=== PATIENT | male | born 1980 | race American Indian/Alaskan Native ===

== ENCOUNTER 2017-03-17 11:11 | Emergency (ER) | payer SELFPAY ==
[2017-03-17 11:17] VITALS: BP 142/98
[2017-03-17 12:35] LABS: Basophils % (Auto) 0.4 % (0.0-1.8); Eosinophils % (Auto) 3.4 % (0.0-4.3); Hematocrit 43.1 % (35.5-45.6); Hemoglobin 13.8 gm/dl (11.8-15.2); Mean Corpuscular HGB Conc 32 % (32-34); Mean Corpuscular Hemoglobin 27 pg (28-32); Mean Corpuscular Volume 85 fl (84-94); Platelet Count 164 K/mm3 (140-440); Red Blood Count 5.07 M/mm3 (3.65-5.03); Red Cell Distribution Width 14.6 % (13.2-15.2); White Blood Count 8.3 K/mm3 (4.5-11.0)
[2017-03-17 12:50] LABS: Anion Gap 18 mmol/L; BUN/Creatinine Ratio 12; Blood Urea Nitrogen 13 mg/dL (9-20); Calcium 8.7 mg/dL (8.4-10.2); Carbon Dioxide 24 mmol/L (22-30); Chloride 103.6 mmol/L (98-107); Glucose 82 mg/dL (75-100); Potassium 4.3 mmol/L (3.6-5.0); Sodium 141 mmol/L (137-145)
[2017-03-17] MEDS ORDERED: ROCEPHIN IM STA (14:57)
[2017-03-17] MEDS ORDERED: ATROVENT IH ONE (14:57)
[2017-03-17] MEDS ORDERED: PROVENTIL IH ONE (14:57)
[2017-03-17] MEDS ORDERED: DELTASONE PO ONE (14:57)
[2017-03-17] MEDS ORDERED: XYLOCAINE 1% MPF 5 mL INFILTRATI ONE (14:57)
--- NOTE | 2017-03-17 14:57 | Emergency Department Report ---
HPI - General Chief Complaint: Upper Respiratory Infection Time Seen by Provider: 03/17/17 14:43 - HPI HPI: Patient reports cough for 3-4 month and states that he is using the inhaler. Patient said that he has a history of asthma and high blood pressure. He said he is not on any blood pressure medication. Patient was last seen here for similar problems on 05/02/2015 and was given prescription for albuterol azithromycin and prednisone. He said she started off with nasal congestion and runny nose and progressed to cough and wheezing. He said that he is having some weakness and dizziness that started this morning at work. He said he gets dizzy when he coughs. He also reports that he gets some chest tightness with coughing but denies any cardiac related disease. Denies any fever or chills. Denies any shortness of breath. Denies any sore throat. Patient does not have his own inhaler and was using his girlfriend inhaler. He does not follow-up for his chronic medical problem with a medical provider ED Past Medical Hx - Past Medical History Previous Medical History?: Yes Hx Hypertension: Yes Hx Asthma: Yes - Surgical History Past Surgical History?: No - Family History Family history: no significant - Social History Smoking Status: Current Every Day Smoker Substance Use Type: Alcohol - Medications Home Medications: Home Medications Medication Instructions Recorded Confirmed Last Taken Type ALBUTEROL Inhaler [ProAir HFA 2 puff IH QID PRN #1 inhalation 05/02/15 Unknown Rx Inhaler] predniSONE [Deltasone] 40 mg PO QDAY #8 tab 05/02/15 Unknown Rx Azithromycin [Zithromax] 250 mg PO QDAY #4 tablet 05/06/15 Unknown Rx predniSONE [Deltasone] 50 mg PO QDAY #5 tab 05/06/15 Unknown Rx ALBUTEROL Inhaler [ProAir HFA 2 puff IH QID PRN 30 Days #1 03/17/17 Unknown Rx Inhaler] inhalation Amoxicillin/K Clav Tab [Augmentin 1 tab PO Q12HR 10 Days #20 tab 03/17/17 Unknown Rx 875 mg] Cetirizine HCl [ZyrTEC] 10 mg PO QAM 14 Days #14 capsule 03/17/17 Unknown Rx Fluticasone [Flonase] 1 spray NS QDAY 14 Days #1 bottle 03/17/17 Unknown Rx guaiFENesin/CODEINE [Robitussin AC] 10 ml PO QHS PRN 7 Days #70 03/17/17 Unknown Rx oral.liqd methylPREDNISolone [Medrol] 4 mg PO QAM 6 Days #1 tab.ds.pk 03/17/17 Unknown Rx ED Review of Systems ROS: Stated complaint: DIZZY AND WEAK Other details as noted in HPI Comment: All other systems reviewed and negative Constitutional: no symptoms reported Eyes: denies: eye discharge ENT: throat pain (throat pain with cough and), congestion. denies: ear pain, dental pain Respiratory: cough, wheezing. denies: orthopnea, shortness of breath, SOB with exertion, SOB at rest, stridor Cardiovascular: chest pain (chest pain with coughing). denies: palpitations, dyspnea on exertion, edema, syncope, paroxysmal nocturnal dyspnea Gastrointestinal: denies: abdominal pain, nausea, vomiting, diarrhea, constipation Musculoskeletal: denies: back pain, joint swelling, arthralgia, myalgia Skin: denies: rash Neurological: denies: headache, weakness, abnormal gait, vertigo Physical Exam - Physical Exam Vital Signs: Vital Signs 03/17/17 11:14 Temperature 98.4 F Pulse Rate 87 Respiratory 16 Rate Blood Pressure 142/98 O2 Sat by Pulse 98 Oximetry General: Patient is a 36-year-old male well-nourished well-developed in no acute distress. Physical Exam: Head: Normocephalic, atraumatic, no abrasion, no bruising and no contusion. Eyes: Biateral pupils equal and reactive to light, bilateral EOM intact.. Bilateral conjunctival and sclera without injection, normal accommodation. No nystagmus Mouth:, No pharyngeal erythema or exudate. Uvula is midline and oral airways patent Ears: Bilateral TMs congested without erythema. No EAC redness ,swelling or drainage. Nose: Nasal mucosa congested with erythema and clear drainage. Maxillary and frontal sinuses nontender to palpate. Neck: Supple, No Cervical adenopathy, full range of motion and no C-spine tenderness. Cardiovascular: S1, S2. Regular rate and rhythm. No murmur. Capillary refill is less then 3 seconds. Lungs: Wheezes throughout lung myers .No rhonci or rales. No chest wall tenderness. Dry cough. No use of accessory muscles Abdomen: Non-tender to palpate in all quadrants, no guarding or rebound tenderness, positive bowel sounds in all quadrants. No CVA tenderness. No hernia, bruit or mass. No rigidity or distention. Extremities: No clubbing, cyanosis or edema. +2 pulses. No neurovascular compromise Skin: Clean, dry and intact. No rash or lesions. Psych: Normal mood and behavior ED Course Vital Signs 03/17/17 11:14 Temperature 98.4 F Pulse Rate 87 Respiratory 16 Rate Blood Pressure 142/98 O2 Sat by Pulse 98 Oximetry - Reevaluation(s) Reevaluation #1: 03/17/17 17:16 Patient received albuterol 5 mg and Atrovent 0.5 mg nebulized in emergency room along with Deltasone 60 mg and said he felt better. His lung sounds after treatment clear ED Medical Decision Making - Lab Data Result diagrams: 03/17/17 12:15 03/17/17 12:14 Lab Results 03/17/17 03/17/17 03/17/17 Range/Units 12:14 12:15 Unknown WBC 8.3 (4.5-11.0) K/mm3 RBC 5.07 H (3.65-5.03) M/mm3 Hgb 13.8 (11.8-15.2) gm/dl Hct 43.1 (35.5-45.6) % MCV 85 (84-94) fl MCH 27 L (28-32) pg MCHC 32 (32-34) % RDW 14.6 (13.2-15.2) % Plt Count 164 (140-440) K/mm3 Lymph % (Auto) 35.9 H (13.4-35.0) % Andrew % (Auto) 7.8 H (0.0-7.3) % Eos % (Auto) 3.4 (0.0-4.3) % Baso % (Auto) 0.4 (0.0-1.8) % Lymph # 3.0 (1.2-5.4) K/mm3 Andrew # 0.6 (0.0-0.8) K/mm3 Eos # 0.3 (0.0-0.4) K/mm3 Baso # 0.0 (0.0-0.1) K/mm3 Seg Neutrophils % 52.5 (40.0-70.0) % Seg Neutrophils # 4.4 (1.8-7.7) K/mm3 Sodium 141 (137-145) mmol/L Potassium 4.3 (3.6-5.0) mmol/L Chloride 103.6 (98-107) mmol/L Carbon Dioxide 24 (22-30) mmol/L Anion Gap 18 mmol/L BUN 13 (9-20) mg/dL Creatinine 1.1 (0.8-1.5) mg/dL Estimated GFR > 60 ml/min BUN/Creatinine Ratio 12 % Glucose 82 (75-100) mg/dL Calcium 8.7 (8.4-10.2) mg/dL Troponin T < 0.010 < 0.010 (0.00-0.029) ng/mL - EKG Data -: EKG Interpreted by Me EKG shows normal: sinus rhythm (83 bpm) Rate: normal - EKG Data Interpretation: no acute changes - Radiology Data Radiology results: report reviewed Chest x-ray revealed no acute cardiopulmonary findings - Medical Decision Making ED course: Patient here report coughing for 3-4 month that he has been using another person's albuterol because he ran out of his and cough and wheeze and is getting worse. Patient has a history of asthma and has been seen here in the past and treated with albuterol, steroid and antibiotic. He is also complaining of weakness and dizziness when he coughs. And also chest pain or coughing. Patient had EKG which was normal without any acute findings, he does not have any cardiac disease has history of hypertension and asthma. He is not on any medication for his high blood pressure. Patient with wheezing throughout lung myers without any use of accessory muscles. Patient chest x- ray revealed no acute cardiopulmonary findings. Received albuterol 5 mg and Atrovent 0.5 mg nebulizer and lung sounds were clear after treatment. He also received physical 60 mg by mouth in emergency room. Patient had lab work to include CBC and BMP which are stable and his Troponin level was normal. Xray/ lab work discussed with patient and he voiced understanding I discussed with him diagnosis and treatment plan and he needs to follow up with primary care physician and if he does not have a primary care physician he'll need to follow- up at [facility] to manage his chronic asthma and high blood pressure. Patient discharged home with prescription for Augmentin, Zyrtec, Flonase and guaifenesin with codeine for cough and to take at night. Critical care attestation.: If time is entered above; I have spent that time in minutes in the direct care of this critically ill patient, excluding procedure time. ED Disposition Clinical Impression: Cough with congestion of paranasal sinus, Atypical chest pain, Vestibular dizziness involving both inner ears Asthma attack Qualifiers: Asthma severity: mild Asthma persistence: intermittent Qualified Code(s): J45.21 - Mild intermittent asthma with (acute) exacerbation Disposition: - TO HOME OR SELFCARE Is pt being admited?: No Does the pt Need Aspirin: No Condition: Stable Instructions: Chest Pain (ED), Asthma (ED), Acute Cough (ED) Additional Instructions: dizziness is caused by fluid behind your eardrums and this why he will need to take Zyrtec to help to relieve congestion. Please inrease her fluid intake Make an appointment to follow up with your primary care physician in 2 days and if he do not have one you can follow-up at [facility] Take medication as prescribed Please do not drive or operate heavy machinery while taking guaifenesin with codeine as this medication causes drowsiness Take antibiotic with yogurt or probiotic to prevent diarrhea Flush nostrils out with nasal saline wash and this will help to relieve nasal congestion Prescriptions: guaiFENesin/CODEINE [Robitussin AC] 10 ml PO QHS PRN 7 Days #70 oral.liqd PRN Reason: Cough ALBUTEROL Inhaler [ProAir HFA Inhaler] 2 puff IH QID PRN 30 Days #1 inhalation PRN Reason: Wheezing Amoxicillin/K Clav Tab [Augmentin 875 mg] 1 tab PO Q12HR 10 Days #20 tab Cetirizine HCl [ZyrTEC] 10 mg PO QAM 14 Days #14 capsule Fluticasone [Flonase] 1 spray NS QDAY 14 Days #1 bottle methylPREDNISolone [Medrol] 4 mg PO QAM 6 Days #1 tab.ds.pk Referrals: PRIMARY CARE, [Primary Care Provider] - 03/19/17 [facility] [place] [Outside] - 03/19/17 Forms: Work/School Release Form(ED)
--- NOTE | 2017-03-17 15:48 | XRay Report ---
ROUTINE CHEST, TWO VIEWS: HISTORY: Cough. The trachea, heart, mediastinal contour, lung myers and bony thorax are unremarkable. IMPRESSION: Unremarkable chest x-ray.
== END 2017-03-17 18:02 | disposition home or self-care (01) ==
LOC: ED 11:11
DX: J45.909 Unspecified asthma, uncomplicated (principal); I10 Essential (primary) hypertension; F17.200 Nicotine dependence, unspecified, uncomplicated
CPT/HCPCS: 36415; 71020; 80048; 84484; 85025; 93005; 93010; 96372; 99284; J0696; J7512

== ENCOUNTER 2017-06-21 18:35 | Emergency (ER) | payer SELFPAY ==
--- NOTE | 2017-06-21 20:18 | XRay Report ---
FINAL REPORT PROCEDURE: XR SPINE SACRUM/COCCYX 2+V TECHNIQUE: Three views sacrum HISTORY: severe pain in sacrum/coccyx area s/p heavy liftin COMPARISON: No prior studies are available for comparison. FINDINGS: Mild sacroiliitis. Sacral ala appears to be grossly intact. Indeterminate to exclude slight fracture of the very distal coccyx tip as well as at the posterior coccygeal interface or transition and at the 2nd coccygeal segment. Consider followup CT scan to further evaluate. IMPRESSION: Recommend CT pelvis to exclude fracture at the sacrococcygeal junction, S2 segment, and very tip of the coccyx.
[2017-06-22] MEDS ORDERED: MOTRIN ONE (00:10)
[2017-06-22] MEDS ORDERED: FLEXERIL ONE (00:10)
[2017-06-22] MEDS ORDERED: FLEXERIL PO ONE (00:11)
[2017-06-22] MEDS ORDERED: MOTRIN PO ONE (00:11)
--- NOTE | 2017-06-22 01:22 | Emergency Department Report ---
HPI - General Chief Complaint: Back Pain/Injury Time Seen by Provider: 06/22/17 01:01 - HPI HPI: Patient is a 36-year-old male who presents to ED complaining of intermittent chronic back pain for the past week. Patient states yesterday his tailbone area began to hurt. Patient states that he didn't associate any trauma, injuries to the back. 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 He doesn't have a heavy lifting and thinks this caused his back pain. Patient denies any allergies to any medications. He denies chest pain, shortness of breath, chest nausea vomiting or abdominal pain, dysuria ED Past Medical Hx - Past Medical History Hx Hypertension: Yes Hx Asthma: Yes - Surgical History Past Surgical History?: No - Social History Smoking Status: Never Smoker Substance Use Type: Alcohol - Medications Home Medications: Home Medications Medication Instructions Recorded Confirmed Last Taken Type ALBUTEROL Inhaler [ProAir HFA 2 puff IH QID PRN #1 inhalation 05/02/15 Unknown Rx Inhaler] predniSONE [Deltasone] 40 mg PO QDAY #8 tab 05/02/15 Unknown Rx Azithromycin [Zithromax] 250 mg PO QDAY #4 tablet 05/06/15 Unknown Rx predniSONE [Deltasone] 50 mg PO QDAY #5 tab 05/06/15 Unknown Rx ALBUTEROL Inhaler [ProAir HFA 2 puff IH QID PRN 30 Days #1 03/17/17 Unknown Rx Inhaler] inhalation Amoxicillin/K Clav Tab [Augmentin 1 tab PO Q12HR 10 Days #20 tab 03/17/17 Unknown Rx 875 mg] Cetirizine HCl [ZyrTEC] 10 mg PO QAM 14 Days #14 capsule 03/17/17 Unknown Rx Fluticasone [Flonase] 1 spray NS QDAY 14 Days #1 bottle 03/17/17 Unknown Rx guaiFENesin/CODEINE [Robitussin AC] 10 ml PO QHS PRN 7 Days #70 03/17/17 Unknown Rx oral.liqd methylPREDNISolone [Medrol] 4 mg PO QAM 6 Days #1 tab.ds.pk 03/17/[address] (Nf) 50 mg PO BID #30 tablet.dr 06/22/17 Unknown Rx traMADol [Ultram] 50 mg PO Q6HR PRN #20 tablet 06/22/17 Unknown Rx ED Review of Systems ROS: Stated complaint: LOWER BACK PAIN Other details as noted in HPI Constitutional: denies: chills, fever Eyes: denies: eye pain, eye discharge, vision change ENT: denies: ear pain, throat pain Respiratory: denies: cough, shortness of breath, wheezing Cardiovascular: denies: chest pain, palpitations Endocrine: no symptoms reported Gastrointestinal: denies: abdominal pain, nausea, diarrhea Genitourinary: denies: urgency, dysuria Musculoskeletal: denies: back pain, joint swelling, arthralgia Skin: denies: rash, lesions Neurological: denies: headache, weakness, paresthesias Psychiatric: denies: anxiety, depression Hematological/Lymphatic: denies: easy bleeding, easy bruising Physical Exam - Physical Exam Vital Signs: Vital Signs 06/21/17 18:41 Temperature 97.5 F L Pulse Rate 88 Respiratory 18 Rate Blood Pressure 173/107 O2 Sat by Pulse 99 Oximetry Physical Exam: GENERAL: Alert and oriented x3, no apparent distress, Normal Gait, atraumatic. NECK: Supple. Non edematous, No lymphadenopathy or thyromegaly. No C-spine tenderness LUNGS: Symetrical with respiration, No wheezing, no rales or crackles, CTAB. HEART: S1, S2 present, regular rate and rhythm without murmur, no rubs, no gallops. Non tender to palpation ABDOMEN: No organomegaly was noted,Positive bowel sounds, soft, and non- distended. . Nontender to palpation on all Quadrants, NO CVA tenderness. BACK: Full range of motion, no spinal tenderness, nontender to palpation. Tenderness to palpation of the right latissimus dorsi muscles. Moderate tenderness to palpation of the lower coccygeal region, no masses palpated no lesions NEUROLOGIC: The patient is cooperative with no focal neurologic deficits. . Normal speech. Normal sensation in bilateral upper and lower extremities, No loss of sensation, ED Course Vital Signs 06/21/17 18:41 Temperature 97.5 F L Pulse Rate 88 Respiratory 18 Rate Blood Pressure 173/107 O2 Sat by Pulse 99 Oximetry ED Medical Decision Making - Lab Data Vital Signs 06/21/17 06/22/17 18:41 01:41 Temperature 97.5 F L 98.4 F Pulse Rate 88 78 Respiratory 18 16 Rate Blood Pressure 173/107 Blood Pressure 136/86 [Right] O2 Sat by Pulse 99 100 Oximetry - Radiology Data Radiology results: report reviewed, image reviewed FINAL REPORT PROCEDURE: XR SPINE SACRUM/COCCYX 2+V TECHNIQUE: Three views sacrum HISTORY: severe pain in sacrum/coccyx area s/p heavy liftin COMPARISON: No prior studies are available for comparison. FINDINGS: Mild sacroiliitis. Sacral ala appears to be grossly intact. Indeterminate to exclude slight fracture of the very distal coccyx tip as well as at the posterior coccygeal interface or transition and at the 2nd coccygeal segment. Consider followup CT scan to further evaluate. IMPRESSION: Recommend CT pelvis to exclude fracture at the sacrococcygeal junction, S2 segment, and very tip of the coccyx. Transcribed By: WEP Dictated By: DOMINIQUE BRYANT MD Electronically Authenticated By: DOMINIQUE BRYANT MD Signed Date/Time: 06/21/172013 - Medical Decision Making 36-year-old male presents to ED with low back pain ED course: Patient received Motrin and Flexeril in ED. Vital signs are normal patient is in no acute distress X-ray shows no acute fracture or dislocation. Possible concern of the coccyx, Patient did not sustain any trauma or any injuries fracture is less likely. Discussed with patient follow-up with orthopedics as referred Even if there was a coccyx fracture, plan of care would not change. he was to follow-up with orthopedic I discussed this with the patient patient states understanding Discussed with patient follow-up with primary care physician. Discussed the patient and take medications as prescribed. Patient has no neurological deficit. Patient is alert and oriented 3 and understands all instructions given. Discussed drowsiness effect of Flexeril makes her drowsy and not to operate machinery while taking flexeril Critical care attestation.: If time is entered above; I have spent that time in minutes in the direct care of this critically ill patient, excluding procedure time. ED Disposition Clinical Impression: Myalgia Low back pain Qualifiers: Chronicity: chronic Back pain laterality: left Sciatica presence: without sciatica Qualified Code(s): M54.5 - Low back pain; G89.29 - Other chronic pain Disposition: DC-01 TO HOME OR SELFCARE Is pt being admited?: No Does the pt Need Aspirin: No Condition: Stable Instructions: Musculoskeletal Pain (ED), Trigger Point Pain (ED), Back Pain (ED ), Arthralgia (ED) Additional Instructions: Make sure to follow up with the primary care physician as discussed. Follow-up with her orthopedic doctor as referred Take all your medications as you've been prescribed. You have been given a copy of their x-ray report today If you have any worsening symptoms or develop new symptoms please return to ED immediately. Prescriptions: Diclofenac Dr (Nf) 50 mg PO BID #30 tablet. traMADol [Ultram] 50 mg PO Q6HR PRN #20 tablet PRN Reason: Pain Referrals: PRIMARY CARE, [Primary Care Provider] - 3-5 Days RICKY ROBERTO MD [Staff Physician] - 3-5 Days [facility] [Outside] - 3-5 Days [facility] [Outside] - 3-5 Days Forms: Accompanied Note, Work/School Release Form Time of Disposition: 01:25
[2017-06-22 01:41] VITALS: BP 136/86
== END 2017-06-22 01:42 | disposition home or self-care (01) ==
LOC: ED 18:35
DX: M54.5 Low back pain (principal); M79.1 Myalgia; I10 Essential (primary) hypertension; J45.909 Unspecified asthma, uncomplicated
CPT/HCPCS: 72220; 99283

== ENCOUNTER 2018-11-23 18:08 | Emergency (ER) | payer SELFPAY ==
[2018-11-23] MEDS ORDERED: DUONEB *Not for PRN Use IH ONE (18:17)
[2018-11-23 18:18] VITALS: BP 140/95
--- NOTE | 2018-11-23 18:18 | Event Note ---
ED Screening Note Date of service: 11/23/18 Time: 18:15 ED Screening Note: This is a 38 y.o. M. that presents with a cough and SOB. Ran out of inhaler. PMH Asthma Current smoker This initial assessment/diagnostic orders/clinical plan/treatment(s) is/are subject to change based on patients health status, clinical progression and re- assessment by fellow clinical providers in the ED. Further treatment and workup at subsequent clinical providers discretion. Patient/guardian urged not to elope from the ED as their condition may be serious if not clinically assessed and managed. Initial orders include: CXR Duoneb treatment
[2018-11-23] MEDS ORDERED: DECADRON IM ONE (19:02)
--- NOTE | 2018-11-23 19:28 | XRay Report ---
CHEST 2 VIEWS INDICATION: cough and SOB. COMPARISON: 03/17/2017. FINDINGS: Support devices: None. Heart: Within normal limits. Lungs/Pleura: No acute air space or interstitial disease. No significant pleural effusion. IMPRESSION: No acute findings. Signer Name: Rolando Parker MD Signed: 11/23/2018 7:24 PM Workstation Name: [id number] - Social Platform
[2018-11-23] MEDS ORDERED: TYLENOL/CODEINE PO ONE (19:35)
--- NOTE | 2018-11-23 19:38 | Emergency Department Report ---
Minor Respiratory - HPI Chief Complaint: Upper Respiratory Infection Stated Complaint: ASTHMA Time Seen by Provider: 11/23/18 18:15 Duration: 2 Days Severity: moderate Minor Respiratory: Yes Able to Tolerate Fluids, Yes Cough, No Rhinorrhea, No Sore Throat, No Ear Pain, No Sick Contacts, No Hemoptysis, No Chest Pain, No Shortness of Breath, No Fever Other History: This is a 38-year-old male with a history of chronic bronchitis presents to ED complaining of intermittent cough for the past 2-3 days. Patient states that he's been using his children's inhalers to no relief. Patient states cough is intermittent tach throughout the day is getting worse. Patient denies fever/chills/nausea vomiting this chest pain or shortness of breath. Patient states that he is a cigarette smoker. Patient denies a history of asthma ED Review of Systems ROS: Stated complaint: ASTHMA Other details as noted in HPI Comment: All other systems reviewed and negative ED Past Medical Hx - Past Medical History Previous Medical History?: Yes Hx Hypertension: Yes Hx Asthma: Yes - Surgical History Past Surgical History?: No - Social History Smoking Status: Current Every Day Smoker Substance Use Type: None - Medications Home Medications: Home Medications Medication Instructions Recorded Confirmed Last Taken Type ALBUTEROL Inhaler (OR & NICU) 2 puff IH QID PRN #1 inhalation 05/02/15 Unknown Rx [ProAir HFA Inhaler] predniSONE [Deltasone] 40 mg PO QDAY #8 tab 05/02/15 Unknown Rx Azithromycin [Zithromax] 250 mg PO QDAY #4 tablet 05/06/15 Unknown Rx predniSONE [Deltasone] 50 mg PO QDAY #5 tab 05/06/15 Unknown Rx Amoxicillin/K Clav Tab [Augmentin 1 tab PO Q12HR 10 Days #20 tab 03/17/17 Unknown Rx 875 mg] Cetirizine HCl [ZyrTEC] 10 mg PO QAM 14 Days #14 capsule 03/17/17 Unknown Rx Fluticasone [Flonase] 1 spray NS QDAY 14 Days #1 bottle 03/17/[address] (Nf) 50 mg PO BID #30 tablet.dr 06/22/17 Unknown Rx traMADol [Ultram] 50 mg PO Q6HR PRN #20 tablet 06/22/17 Unknown Rx ALBUTEROL Inhaler (OR & NICU) 2 puff IH QID PRN 30 Days #1 11/23/18 Unknown Rx [ProAir HFA Inhaler] inhalation guaiFENesin/CODEINE [Robitussin AC] 10 ml PO QHS PRN 7 Days #70 11/23/18 Unknown Rx oral.liqd methylPREDNISolone [Medrol 4MG 4 mg PO QAM 6 Days #1 tab.ds.pk 11/23/18 Unknown Rx DOSEPAK (21 tabs)] Minor Respiratory Exam - Exam General: Vital signs noted. No distress. Alert and acting appropriately. HEENT: Yes Moist Mucous Membranes, No Pharyngeal Erythema, No Pharyngeal Exudates, No Rhinorrhea, No Conjuctival Injection, No Frontal Tenderness, No Maxillary Tenderness Ear: Neither TM Bulge, Neither TM Erythema, Neither EAC Pain, Neither EAC Discharge Neck: Yes Supple, No Adenopathy Lungs: Yes Good Air Exchange, No Wheezes, No Ronchi, No Stridor, No Cough, No Labored Respirations, No Retractions, No Use of Accessory Muscles, No Other Abnormal Lung Sounds Heart: Yes Regular, No Murmur Abdomen: Yes Normal Bowel Sounds, No Tenderness, No Peritoneal Signs Skin: No Rash, No Edema Neurologic: Alert and oriented, no deficits. Musculoskeletal: Unremarkable. ED Course Vital Signs 11/23/18 18:15 Temperature 98 F Pulse Rate 90 Respiratory 20 Rate Blood Pressure 140/95 O2 Sat by Pulse 98 Oximetry ED Medical Decision Making - Radiology Data Radiology results: report reviewed, image reviewed Fluoro Time In Minutes: CHEST 2 VIEWS INDICATION: cough and SOB. COMPARISON: 03/17/2017. FINDINGS: Support devices: None. Heart: Within normal limits. Lungs/Pleura: No acute air space or interstitial disease. No significant pleural effusion. IMPRESSION: No acute findings. Signer Name: Rolando Parker MD Signed: 11/23/2018 7:24 PM Workstation Name: [id number] Transcribed By: ES Dictated By: Rolando Parker MD Electronically Authenticated By: Rolando Parker MD Signed Date/Time: 11/23/181923 - Medical Decision Making 32-year-old male presents with bronchitis ED course: Patient received a breathing treatment, prednisone, cough suppressant in the ED. Chest x-ray ordered, chest x-ray shows no acute findings. Patient had no respiratory distress in the ED. Post treatment evaluation: No wheezing heard, no use of accessory muscles, Discussed the patient to get a humidifier for his home and use that at home I discussed with the patient to follow up with her primary care physician. I discussed with the patient will be going home on with albuterol inhaler as well as nebulizer Vital signs are normalized, patient is saturation at 99% on room air. I discussed with the patient is symptoms worsen to return to ED immediately. Critical care attestation.: If time is entered above; I have spent that time in minutes in the direct care of this critically ill patient, excluding procedure time. ED Disposition Clinical Impression: Chronic bronchitis Disposition: DC-01 TO HOME OR SELFCARE Is pt being admited?: No Does the pt Need Aspirin: No Condition: Stable Instructions: Chronic Bronchitis (ED) Additional Instructions: Make sure to follow up with the primary care physician as discussed. Take all your medications as you've been prescribed. The need to follow-up with a head chef as referred If you have any worsening symptoms or develop new symptoms please return to ED immediately. Prescriptions: guaiFENesin/CODEINE [Robitussin AC] 10 ml PO QHS PRN 7 Days #70 oral.liqd PRN Reason: Cough methylPREDNISolone [Medrol 4MG DOSEPAK (21 tabs)] 4 mg PO QAM 6 Days #1 tab.ds.pk ALBUTEROL Inhaler (OR & NICU) [ProAir HFA Inhaler] 2 puff IH QID PRN 30 Days #1 inhalation PRN Reason: Wheezing Referrals: [facility] MD SIMON [Primary Care Provider] - 3-5 Days NADEGE VALLADARES MD [Referring] - 3-5 Days [facility] [Provider Group] - 3-5 Days [facility] [Provider Group] - 3-5 Days Forms: Accompanied Note, Work/School Release Form(ED) Time of Disposition: 19:40 (mode)
== END 2018-11-23 20:02 | disposition home or self-care (01) ==
LOC: ED 18:08
DX: J42 Unspecified chronic bronchitis (principal); J45.909 Unspecified asthma, uncomplicated; F17.200 Nicotine dependence, unspecified, uncomplicated; I10 Essential (primary) hypertension; Z79.899 Other long term (current) drug therapy
CPT/HCPCS: 71046; 94640; 96372; 99283; J1100

== ENCOUNTER 2018-12-14 18:44 | Emergency (ER) | payer SELFPAY ==
[2018-12-14] MEDS ORDERED: DUONEB *Not for PRN Use IH ONE (18:57)
[2018-12-14] MEDS ORDERED: PROVENTIL IH ONE (20:00)
[2018-12-14] MEDS ORDERED: NACL 0.9% 1000 ML 1,000 ML IV ONE (20:01)
[2018-12-14] MEDS ORDERED: SOLU-Medrol IV ONE (20:01)
[2018-12-14] MEDS ORDERED: ATROVENT IH ONE (20:01)
[2018-12-14] MEDS ORDERED: TORADOL IVP ONE (20:02)
[2018-12-14] MEDS ORDERED: ROBITUSSIN AC PO ONE (21:02)
--- NOTE | 2018-12-14 21:35 | Emergency Department Report ---
ED General Adult HPI - General Chief complaint: Dyspnea/Respdistress Stated complaint: MARAL Time Seen by Provider: 12/14/18 19:24 Source: patient, family Mode of arrival: Ambulatory Limitations: Other - History of Present Illness Initial comments: Patient presents to the emergency department with a chief complaint of a cough with bronchitis for last 2-3 weeks. Patient states the albuterol at home was not working. Patient complains of having chest burning with cough only. Patient denies abdominal pain, headache. -: week(s) Severity scale (0 -10): 4 Consistency: constant Improves with: none Worsens with: none Associated Symptoms: denies other symptoms Treatments Prior to Arrival: none - Related Data Previous Rx's Medication Instructions Recorded Last Taken Type ALBUTEROL Inhaler (OR & NICU) 2 puff IH QID PRN #1 inhalation 05/02/15 Unknown Rx [ProAir HFA Inhaler] predniSONE [Deltasone] 40 mg PO QDAY #8 tab 05/02/15 Unknown Rx Azithromycin [Zithromax] 250 mg PO QDAY #4 tablet 05/06/15 Unknown Rx predniSONE [Deltasone] 50 mg PO QDAY #5 tab 05/06/15 Unknown Rx Amoxicillin/K Clav Tab [Augmentin 1 tab PO Q12HR 10 Days #20 tab 03/17/17 Unknown Rx 875 mg] Cetirizine HCl [ZyrTEC] 10 mg PO QAM 14 Days #14 capsule 03/17/17 Unknown Rx Fluticasone [Flonase] 1 spray NS QDAY 14 Days #1 bottle 03/17/[address] (Nf) 50 mg PO BID #30 tablet.dr 06/22/17 Unknown Rx traMADol [Ultram] 50 mg PO Q6HR PRN #20 tablet 06/22/17 Unknown Rx ALBUTEROL Inhaler (OR & NICU) 2 puff IH QID PRN 30 Days #1 11/23/18 Unknown Rx [ProAir HFA Inhaler] inhalation guaiFENesin/CODEINE [Robitussin AC] 10 ml PO QHS PRN 7 Days #70 11/23/18 Unknown Rx oral.liqd methylPREDNISolone [Medrol 4MG 4 mg PO QAM 6 Days #1 tab.ds.pk 11/23/18 Unknown Rx DOSEPAK (21 tabs)] ALBUTEROL Inhaler (OR & NICU) 2 puff IH Q4HR PRN #1 inhalation 12/14/18 Unknown Rx [ProAir HFA Inhaler] Albuterol Sulfate [Albuterol 0.63% 0.63 mg IH Q4HR PRN #30 ml 12/14/18 Unknown Rx NEBS] Azithromycin [Zithromax Z-LISA] 250 mg PO DAILY #6 tablet 12/14/18 Unknown Rx Codeine Phosphate/Guaifenesin 180 ml PO Q12HR PRN #180 liquid 12/14/18 Unknown Rx [Guaifenesin-Codeine Syrup] Ibuprofen [Motrin] 800 mg PO Q8HR PRN #30 tablet 12/14/18 Unknown Rx Nebulizer and Compressor [Easy Air 1 each MC Q4HR #1 each 12/14/18 Unknown Rx Compressor Nebulizer] predniSONE [Deltasone] 20 mg PO DAILY #15 tablet 12/14/18 Unknown Rx Allergies Allergy/AdvReac Type Severity Reaction Status Date / Time No Known Allergies Allergy Verified 03/17/17 11:14 ED Review of Systems ROS: Stated complaint: MARAL Other details as noted in HPI Comment: Unobtainable due to pts medical conditions Constitutional: denies: chills, fever Eyes: denies: eye pain, eye discharge, vision change ENT: denies: ear pain, throat pain Respiratory: denies: cough, shortness of breath, wheezing Cardiovascular: denies: chest pain, palpitations Endocrine: no symptoms reported Gastrointestinal: denies: abdominal pain, nausea, diarrhea Genitourinary: denies: urgency, dysuria Musculoskeletal: denies: back pain, joint swelling, arthralgia Skin: denies: rash, lesions Neurological: denies: headache, weakness, paresthesias Psychiatric: denies: anxiety, depression Hematological/Lymphatic: denies: easy bleeding, easy bruising ED Past Medical Hx - Past Medical History Previous Medical History?: Yes Hx Hypertension: Yes Hx Asthma: Yes ("chronic bronchitis") - Social History Smoking Status: Current Every Day Smoker Substance Use Type: None - Medications Home Medications: Home Medications Medication Instructions Recorded Confirmed Last Taken Type ALBUTEROL Inhaler (OR & NICU) 2 puff IH QID PRN #1 inhalation 05/02/15 Unknown Rx [ProAir HFA Inhaler] predniSONE [Deltasone] 40 mg PO QDAY #8 tab 05/02/15 Unknown Rx Azithromycin [Zithromax] 250 mg PO QDAY #4 tablet 05/06/15 Unknown Rx predniSONE [Deltasone] 50 mg PO QDAY #5 tab 05/06/15 Unknown Rx Amoxicillin/K Clav Tab [Augmentin 1 tab PO Q12HR 10 Days #20 tab 03/17/17 Unknown Rx 875 mg] Cetirizine HCl [ZyrTEC] 10 mg PO QAM 14 Days #14 capsule 03/17/17 Unknown Rx Fluticasone [Flonase] 1 spray NS QDAY 14 Days #1 bottle 03/17/[address] (Nf) 50 mg PO BID #30 tablet.dr 06/22/17 Unknown Rx traMADol [Ultram] 50 mg PO Q6HR PRN #20 tablet 06/22/17 Unknown Rx ALBUTEROL Inhaler (OR & NICU) 2 puff IH QID PRN 30 Days #1 11/23/18 Unknown Rx [ProAir HFA Inhaler] inhalation guaiFENesin/CODEINE [Robitussin AC] 10 ml PO QHS PRN 7 Days #70 11/23/18 Unknown Rx oral.liqd methylPREDNISolone [Medrol 4MG 4 mg PO QAM 6 Days #1 tab.ds.pk 11/23/18 Unknown Rx DOSEPAK (21 tabs)] ALBUTEROL Inhaler (OR & NICU) 2 puff IH Q4HR PRN #1 inhalation 12/14/18 Unknown Rx [ProAir HFA Inhaler] Albuterol Sulfate [Albuterol 0.63% 0.63 mg IH Q4HR PRN #30 ml 12/14/18 Unknown Rx NEBS] Azithromycin [Zithromax Z-LISA] 250 mg PO DAILY #6 tablet 12/14/18 Unknown Rx Codeine Phosphate/Guaifenesin 180 ml PO Q12HR PRN #180 liquid 12/14/18 Unknown Rx [Guaifenesin-Codeine Syrup] Ibuprofen [Motrin] 800 mg PO Q8HR PRN #30 tablet 12/14/18 Unknown Rx Nebulizer and Compressor [Easy Air 1 each MC Q4HR #1 each 12/14/18 Unknown Rx Compressor Nebulizer] predniSONE [Deltasone] 20 mg PO DAILY #15 tablet 12/14/18 Unknown Rx ED Physical Exam - General Limitations: Other General appearance: alert, in no apparent distress - Head Head exam: Present: atraumatic, normocephalic - Eye Eye exam: Present: normal appearance - ENT ENT exam: Present: mucous membranes moist - Neck Neck exam: Present: normal inspection - Respiratory Respiratory exam: Present: normal lung sounds bilaterally, wheezes. Absent: respiratory distress - Cardiovascular Cardiovascular Exam: Present: regular rate, normal rhythm. Absent: systolic murmur, diastolic murmur, rubs, gallop - GI/Abdominal GI/Abdominal exam: Present: soft, normal bowel sounds. Absent: distended, tenderness - Rectal Rectal exam: Present: deferred - Extremities Exam Extremities exam: Present: normal inspection - Back Exam Back exam: Present: normal inspection - Neurological Exam Neurological exam: Present: alert, oriented X3, CN II-XII intact. Absent: motor sensory deficit - Psychiatric Psychiatric exam: Present: normal affect, normal mood - Skin Skin exam: Present: warm, dry, intact, normal color. Absent: rash ED Course Vital Signs 12/14/18 12/14/18 12/14/18 19:01 19:16 19:54 Pulse Rate 109 H 103 H Pulse Rate [ 112 H Bilateral Throughout] Respiratory 20 20 Rate Respiratory 24 Rate [Bilateral Throughout] Blood Pressure 129/85 150/98 [Left] O2 Sat by Pulse 98 98 Oximetry 12/14/18 20:15 Pulse Rate Pulse Rate [ 121 H Bilateral Throughout] Respiratory Rate Respiratory 24 Rate [Bilateral Throughout] Blood Pressure [Left] O2 Sat by Pulse Oximetry ED Medical Decision Making - Medical Decision Making Patient improved with IV steroids and breathing treatments. Patient received 2 breathing treatments Critical care attestation.: If time is entered above; I have spent that time in minutes in the direct care of this critically ill patient, excluding procedure time. ED Disposition Clinical Impression: Bronchitis Disposition: DC-01 TO HOME OR SELFCARE Is pt being admited?: No Does the pt Need Aspirin: No Condition: Stable Instructions: Acute Bronchitis (ED) Additional Instructions: return if worse Prescriptions: Albuterol Sulfate [Albuterol 0.63% NEBS] 0.63 mg IH Q4HR PRN #30 ml PRN Reason: Wheezing predniSONE [Deltasone] 20 mg PO DAILY #15 tablet Nebulizer and Compressor [Easy Air Compressor Nebulizer] 1 each MC Q4HR #1 each Codeine Phosphate/Guaifenesin [Guaifenesin-Codeine Syrup] 180 ml PO Q12HR PRN #180 liquid PRN Reason: pain Ibuprofen [Motrin] 800 mg PO Q8HR PRN #30 tablet PRN Reason: Pain ALBUTEROL Inhaler (OR & NICU) [ProAir HFA Inhaler] 2 puff IH Q4HR PRN #1 inhalation PRN Reason: Shortness Of Breath Azithromycin [Zithromax Z-LISA] 250 mg PO DAILY #6 tablet Referrals: [facility] [Provider Group] - 3-5 Days [facility] [Provider Group] - 3-5 Days Time of Disposition: 21:34
[2018-12-14 22:21] VITALS: BP 144/94
== END 2018-12-14 22:00 | disposition home or self-care (01) ==
LOC: ED 18:44
DX: J40 Bronchitis, not specified as acute or chronic (principal); I10 Essential (primary) hypertension; F17.200 Nicotine dependence, unspecified, uncomplicated; Z79.899 Other long term (current) drug therapy
CPT/HCPCS: 94640; 96374; 96375; 99283; J1885; J2930; J7030; 94644

== ENCOUNTER 2020-04-01 18:08 | Emergency (ER) | payer SELFPAY ==
[2020-04-01] MEDS ORDERED: methylPREDNISolone Sod Succinate 125 MG/2 ML INJ IV ONE (18:18)
[2020-04-01] MEDS ORDERED: MAGNESIUM SULFATE 2 GM/50 ML BAG IV ONE (18:18)
[2020-04-01] MEDS ORDERED: ALBUTEROL 2.5 MG/3 ML NEBU IH ONE ×2 (18:18)
[2020-04-01] MEDS ORDERED: IPRATROPIUM 0.02% NEBU 2.5 ML IH ONE ×2 (18:18)
[2020-04-01] MEDS ORDERED: LORazepam 2 MG/ML VIAL IV ONE (18:19)
[2020-04-01] MEDS ORDERED: ONDANSETRON 4 MG/2 ML INJ ONE (18:27)
--- NOTE | 2020-04-01 18:28 | Emergency Department Report ---
ED Shortness of Breath HPI - General Chief Complaint: Dyspnea/Respdistress Stated Complaint: MARAL Time Seen by Provider: 04/01/20 18:18 Source: patient Mode of arrival: Wheelchair Limitations: No Limitations - History of Present Illness Initial Comments: Patient is 39 years old male with history of asthma and COPD. Patient presented to the emergency room with severe respiratory distress. Patient stated that his symptoms started this morning with shortness of breath and wheezing and is getting worse now. Patient denied any fever or chills. No nausea or vomiting. No chest pain or cough. MD Complaint: shortness of breath -: This morning Known History Of: COPD - Related Data Previous Rx's Medication Instructions Recorded Last Taken Type predniSONE [Deltasone] 40 mg PO QDAY #8 tab 05/02/15 Unknown Rx Azithromycin [Zithromax] 250 mg PO QDAY #4 tablet 05/06/15 Unknown Rx predniSONE [Deltasone] 50 mg PO QDAY #5 tab 05/06/15 Unknown Rx Amoxicillin/K Clav Tab [Augmentin 1 tab PO Q12HR 10 Days #20 tab 03/17/17 Unkno wn Rx 875 mg] Cetirizine HCl [ZyrTEC] 10 mg PO QAM 14 Days #14 capsule 03/17/17 Unknown Rx Fluticasone [Flonase] 1 spray NS QDAY 14 Days #1 bottle 03/17/[address] (Nf) 50 mg PO BID #30 tablet.dr 06/22/17 Unknown Rx traMADoL [Ultram] 50 mg PO Q6HR PRN #20 tablet 06/22/17 Unknown Rx Albuterol Mdi (or & Nicu Only) 2 puff IH QID PRN 30 Days #1 11/23/18 Unknown Rx [ProAir HFA Inhaler] inhalation guaiFENesin/CODEINE [Robitussin AC] 10 ml PO QHS PRN 7 Days #70 11/23/18 Unknown Rx oral.liqd methylPREDNISolone [Medrol 4MG 4 mg PO QAM 6 Days #1 tab.ds.pk 11/23/18 Unknown Rx DOSEPAK (21 tabs)] Albuterol Mdi (or & Nicu Only) 2 puff IH Q4HR PRN #1 inhalation 12/14/18 Unknown Rx [ProAir HFA Inhaler] Azithromycin [Zithromax Z-LISA] 250 mg PO DAILY #6 tablet 12/14/18 Unknown Rx Codeine Phosphate/Guaifenesin 180 ml PO Q12HR PRN #180 liquid 12/14/18 Unknown Rx [Guaifenesin-Codeine Syrup] Ibuprofen [Motrin] 800 mg PO Q8HR PRN #30 tablet 12/14/18 Unknown Rx Nebulizer and Compressor [Easy Air 1 each MC Q4HR #1 each 12/14/18 Unknown Rx Compressor Nebulizer] predniSONE [Deltasone] 20 mg PO DAILY #15 tablet 12/14/18 Unknown Rx Albuterol Mdi (or & Nicu Only) 2 puff IH QID PRN #1 inhalation 08/22/19 Unknown Rx [ProAir HFA Inhaler] Albuterol Sulfate [Albuterol 0.63% 0.63 mg IH Q4HR PRN 30 Days ml 08/22/19 Unknown Rx NEBS] Benzonatate [Tessalon Perles] 100 mg PO Q8HR PRN #20 capsule 08/22/19 Unknown Rx Prednisone [predniSONE 10 mg 10 mg PO .TAPER #1 tab.ds.pk 08/22/19 Unknown Rx (6-Day Pack, 21 Tabs)] Allergies Allergy/AdvReac Type Severity Reaction Status Date / Time No Known Allergies Allergy Verified 04/01/20 18:09 ED Review of Systems ROS: Stated complaint: MARAL Other details as noted in HPI Comment: All other systems reviewed and negative Constitutional: denies: chills, fever Respiratory: shortness of breath, SOB with exertion, SOB at rest, wheezing. denies: cough Cardiovascular: denies: chest pain, palpitations Gastrointestinal: denies: abdominal pain, nausea, vomiting Musculoskeletal: denies: back pain Neurological: denies: headache, weakness ED Past Medical Hx - Past Medical History Hx Hypertension: Yes Hx Asthma: Yes ("chronic bronchitis") - Social History Smoking Status: Current Every Day Smoker Substance Use Type: None - Medications Home Medications: Home Medications Medication Instructions Recorded Confirmed Last Taken Type predniSONE [Deltasone] 40 mg PO QDAY #8 tab 05/02/15 Unknown Rx Azithromycin [Zithromax] 250 mg PO QDAY #4 tablet 05/06/15 Unknown Rx predniSONE [Deltasone] 50 mg PO QDAY #5 tab 05/06/15 Unknown Rx Amoxicillin/K Clav Tab [Augmentin 1 tab PO Q12HR 10 Days #20 tab 03/17/17 Unknown Rx 875 mg] Cetirizine HCl [ZyrTEC] 10 mg PO QAM 14 Days #14 capsule 03/17/17 Unknown Rx Fluticasone [Flonase] 1 spray NS QDAY 14 Days #1 bottle 03/17/[address] (Nf) 50 mg PO BID #30 tablet.dr 06/22/17 Unknown Rx traMADoL [Ultram] 50 mg PO Q6HR PRN #20 tablet 06/22/17 Unknown Rx Albuterol Mdi (or & Nicu Only) 2 puff IH QID PRN 30 Days #1 11/23/18 Unknown Rx [ProAir HFA Inhaler] inhalation guaiFENesin/CODEINE [Robitussin AC] 10 ml PO QHS PRN 7 Days #70 11/23/18 Unknown Rx oral.liqd methylPREDNISolone [Medrol 4MG 4 mg PO QAM 6 Days #1 tab.ds.pk 11/23/18 Unknown Rx DOSEPAK (21 tabs)] Albuterol Mdi (or & Nicu Only) 2 puff IH Q4HR PRN #1 inhalation 12/14/18 Unknown Rx [ProAir HFA Inhaler] Azithromycin [Zithromax Z-LISA] 250 mg PO DAILY #6 tablet 12/14/18 Unknown Rx Codeine Phosphate/Guaifenesin 180 ml PO Q12HR PRN #180 liquid 12/14/18 Unknown Rx [Guaifenesin-Codeine Syrup] Ibuprofen [Motrin] 800 mg PO Q8HR PRN #30 tablet 12/14/18 Unknown Rx Nebulizer and Compressor [Easy Air 1 each MC Q4HR #1 each 12/14/18 Unknown Rx Compressor Nebulizer] predniSONE [Deltasone] 20 mg PO DAILY #15 tablet 12/14/18 Unknown Rx Albuterol Mdi (or & Nicu Only) 2 puff IH QID PRN #1 inhalation 08/22/19 Unknown Rx [ProAir HFA Inhaler] Albuterol Sulfate [Albuterol 0.63% 0.63 mg IH Q4HR PRN 30 Days ml 08/22/19 Unknown Rx NEBS] Benzonatate [Tessalon Perles] 100 mg PO Q8HR PRN #20 capsule 08/22/19 Unknown Rx Prednisone [predniSONE 10 mg 10 mg PO .TAPER #1 tab.ds.pk 08/22/19 Unknown Rx (6-Day Pack, 21 Tabs)] ED Physical Exam - General Limitations: No Limitations General appearance: alert, in distress - Head Head exam: Present: atraumatic, normocephalic, normal inspection - Eye Eye exam: Present: normal appearance, PERRL - ENT ENT exam: Present: normal exam, normal orophraynx, mucous membranes moist - Neck Neck exam: Present: normal inspection, full ROM. Absent: tenderness, meningismus - Respiratory Respiratory exam: Present: respiratory distress, wheezes, rales, rhonchi, accessory muscle use, decreased breath sounds, prolonged expiratory. Absent: stridor - Cardiovascular Cardiovascular Exam: Present: tachycardia - GI/Abdominal GI/Abdominal exam: Present: soft, normal bowel sounds. Absent: distended, tenderness, guarding, rebound, rigid, organomegaly, mass, bruit, pulsatile mass, hernia - Extremities Exam Extremities exam: Present: normal inspection, full ROM, normal capillary refill. Absent: pedal edema, calf tenderness - Back Exam Back exam: Present: normal inspection, full ROM. Absent: CVA tenderness (R), CVA tenderness (L) - Neurological Exam Neurological exam: Present: alert, oriented X3, CN II-XII intact - Psychiatric Psychiatric exam: Present: normal mood - Skin Skin exam: Present: warm, intact, normal color ED Course Vital Signs 04/01/20 04/01/20 04/01/20 18:13 18:36 18:45 Temperature 98.1 F Pulse Rate 113 H 105 H Respiratory 28 H 30 H Rate Blood Pressure 146/102 Blood Pressure 168/113 [Right] O2 Sat by Pulse 93 98 99 Oximetry 04/01/20 04/01/20 04/01/20 19:00 19:30 20:00 Temperature Pulse Rate 101 H 96 H 110 H Respiratory 29 H 27 H 25 H Rate Blood Pressure 151/87 133/94 129/92 Blood Pressure [Right] O2 Sat by Pulse 97 97 90 Oximetry 04/01/20 04/01/20 04/01/20 20:19 20:30 21:00 Temperature Pulse Rate 91 H Respiratory 23 Rate Blood Pressure 129/87 129/84 Blood Pressure [Right] O2 Sat by Pulse 93 91 94 Oximetry 12/04/01/20 04/01/20 21:30 22:00 22:31 Temperature Pulse Rate Respiratory Rate Blood Pressure 127/46 137/56 110/63 Blood Pressure [Right] O2 Sat by Pulse Oximetry - Reevaluation(s) Reevaluation #1: 04/01/20 18:55 Patient received albuterol, Atrovent, Solu-Medrol, magnesium sulfate and Ativan. Patient stated that he is feeling much better. ED Medical Decision Making - Lab Data Result diagrams: 04/01/20 18:35 04/01/20 18:35 - EKG Data -: EKG Interpreted by Me EKG shows normal: sinus rhythm Rate: normal - Radiology Data Radiology results: report reviewed - Medical Decision Making Patient is 39 years old male with history of asthma and COPD. Patient presented to the emergency room with severe respiratory distress. Patient stated that his symptoms started this morning with shortness of breath and wheezing and is getting worse now. Patient denied any fever or chills. No nausea or vomiting. No chest pain or cough. Patient received albuterol, Atrovent, Solu-Medrol and magnesium sulfate. Patient stated that he is feeling much better. Patient given prescription for albuterol and prednisone and advised to follow-up with his primary care physician in the next 2 to 3 days and to return to the ER if he develop any new symptoms. Critical Care Time: Yes Critical care time in (mins) excluding proc time.: 30 Critical care attestation.: If time is entered above; I have spent that time in minutes in the direct care of this critically ill patient, excluding procedure time. ED Disposition Clinical Impression: Acute respiratory failure, Acute asthma exacerbation Disposition: - TO HOME OR SELFCARE Is pt being admited?: No Condition: Stable Instructions: Asthma, Adult Referrals: PRIMARY CARE, [Primary Care Provider] - 3-5 Days
[2020-04-01 18:47] LABS: Hematocrit 43.4 % (35.5-45.6); Hemoglobin 14.3 gm/dl (11.8-15.2); Mean Corpuscular HGB Conc 33 % (32-34); Mean Corpuscular Volume 83 fl (84-94); Platelet Count 183 K/mm3 (140-440); Red Blood Count 5.26 M/mm3 (3.65-5.03); Red Cell Distribution Width 14.6 % (13.2-15.2)
[2020-04-01 19:07] LABS: BUN/Creatinine Ratio 13; Blood Urea Nitrogen 13 mg/dL (9-20); Calcium 9.1 mg/dL (8.4-10.2); Hemolysis Index 14
--- NOTE | 2020-04-01 19:31 | XRay Report ---
CHEST 1 VIEW 04/01/2020 6:25 PM INDICATION / CLINICAL INFORMATION: Dyspnea. COMPARISON: 08/22/2019 FINDINGS: SUPPORT DEVICES: None. HEART / MEDIASTINUM: No significant abnormality. LUNGS / PLEURA: No significant pulmonary or pleural abnormality. No pneumothorax. ADDITIONAL FINDINGS: No significant additional findings. IMPRESSION: 1. No acute findings. Signer Name: Shaan Barrera MD Signed: 04/01/2020 7:27 PM Workstation Name: [id number]
[2020-04-01 19:41] LABS: Large Platelets Few; Platelet Estimate Consistent w Auto; RBC Morphology Normal; Total Cells Counted 100
[2020-04-01 23:07] VITALS: BP 118/72
== END 2020-04-01 22:55 | disposition home or self-care (01) ==
LOC: ED 18:08
DX: J96.00 Acute respiratory failure, unspecified whether with hypoxia or hypercapnia (principal); J45.901 Unspecified asthma with (acute) exacerbation; F17.200 Nicotine dependence, unspecified, uncomplicated; Z79.899 Other long term (current) drug therapy
CPT/HCPCS: 36415; 71045; 80048; 83880; 84484; 85007; 85025; 87040; 93005; 94640; 96374; 96375; 99291; J2060; J2405; J2930; J3475